=== PATIENT | female | born 1995 | race African-American/Black ===

== ENCOUNTER 2020-03-28 22:35 | Inpatient (IN) ==
[2020-03-28 23:17] LABS: Apearance,Urine CLEAR (Clear); Bacteria,Urine Occasional /HPF (Few); Bilirubin,Urine Negative (Negative); Blood, Urine Moderate mg/dL (Negative); Glucose,Urine (UA) Negative (Negative); Ketones,Urine Negative (Negative); Nitrite,Urine Negative (Negative); Protein,Urine Negative; RBC,Urine 4 /HPF (0-4); Squamous Epithelial Cell,Urine Occasional /HPF (0-10); Urine Color Straw (Yellow); Urine Specific Gravity 1.006 (1.001-1.035); Urine Urobilinogen < 2.0 EU/DL (0.2-1.0); WBC,Urine 3 /HPF (0-6)
[2020-03-29] MEDS ORDERED: MEPERIDINE 25 MG/1 ML VIAL IV PRN (00:03)
[2020-03-29] MEDS ORDERED: ONDANSETRON 4 MG/2 ML VIAL IV PRN ×3 (00:03→09:57)
[2020-03-29] MEDS ORDERED: MEPERIDINE 50 MG/1 ML VIAL IV PRN (05:27)
[2020-03-29] MEDS ORDERED: LACTATED RINGERS 1,000 ML IV PRN (05:27)
[2020-03-29] MEDS ORDERED: BUTORPHANOL 2 MG/ML VIAL IV PRN (05:27)
[2020-03-29 05:58] LABS: Basophils % 0.1 % (0.0-0.8); Hematocrit 34.3 VOL% (35.7-47.0); Hemoglobin 10.8 GM/DL (12.0-16.0); Immature Granulocytes % 0.5 %; Immature Granulocytes Absolute 0.04 #; Lymphocytes # 1.4 10*3/uL (1.4-4.0); Lymphocytes % 15.4 % (21.3-54.2); Mean Corpuscular HGB Conc 31.5 GM/DL (32-36); Mean Platelet Volume 10.6 FL (9.6-12.0); Monocytes % 8.5 % (1.7-12.7); Neutrophils % 75.5 % (38.7-73.9); Platelet Count 191 T/CUMM (130-400); Red Blood Count 3.65 MC/CUMM (3.8-5.5); Red Cell Distribution Width 13.6 % (9.3-17.3); White Blood Count 8.7 T/CUMM (4-12)
[2020-03-29] MEDS ORDERED: CITRIC ACID/SODIUM CITRATE 30 ML UDCUP PO ONE (06:05)
[2020-03-29] MEDS ORDERED: ePHEDrine 50 MG/ML VIAL IV PRN (06:05)
[2020-03-29] MEDS ORDERED: NALOXONE 0.4 MG/ML VIAL IV PRN (06:05)
[2020-03-29] MEDS ORDERED: FAMOTIDINE 20 MG/2 ML VIAL IV ONE (06:05)
[2020-03-29 06:24] LABS: Bilirubin,Total 0.7 MG/DL (0.2-1.0); Calcium 9.1 MG/DL (8.5-10.1); Total Protein 6.9 G/DL (6.4-8.3)
[2020-03-29] MEDS ORDERED: OXYTOCIN/LR 20 UNIT/1,000 ML BAG IV SCH (06:30)
[2020-03-29] MEDS ORDERED: fentaNYL 2 MCG/ROPIV 0.2% EPID 100 ML EPIDURAL SCH (06:30)
[2020-03-29] MEDS ORDERED: LIDOCAINE 1% 50 ML VIAL ONE (07:38)
[2020-03-29] MEDS ORDERED: SODIUM CHLORIDE 0.9% 0 ML IV ONE (07:39)
[2020-03-29] MEDS ORDERED: miSOPROStoL 200 MCG TABLET ONE (07:39)
[2020-03-29] MEDS ORDERED: TRANEXAMIC ACID 1,000 MG/10 ML VIAL ONE (07:42)
[2020-03-29] MEDS ORDERED: METHYLERGONOVINE 0.2 MG/1 ML AMP ONE (07:42)
[2020-03-29] MEDS ORDERED: CARBOPROST TROMETHAMINE 250 MCG/ML AMP IM ONE (07:42)
[2020-03-29 09:30] LABS: Apearance,Urine CLEAR (Clear); Bilirubin,Urine Negative (Negative); Blood, Urine Negative (Negative); Glucose,Urine (UA) Negative (Negative); Ketones,Urine 80 mg/dL (Negative); Mucus,Urine Occasional /LPF (Occasional); Nitrite,Urine Negative (Negative); Protein,Urine Negative; RBC,Urine 3 /HPF (0-4); Urine Color Yellow (Yellow); Urine Specific Gravity 1.015 (1.001-1.035); Urine Urobilinogen < 2.0 EU/DL (0.2-1.0); WBC,Urine <1 /HPF (0-6)
[2020-03-29] MEDS ORDERED: oxyCODONE/ACETAMINOPHEN 5-325 MG TABLET PO PRN ×2 (09:57)
[2020-03-29] MEDS ORDERED: WITCH HAZEL PADS 100/JAR TOP PRN (09:57)
[2020-03-29] MEDS ORDERED: ACETAMINOPHEN 325 MG TABLET PO PRN (09:57)
[2020-03-29] MEDS ORDERED: DIPH/TET/ACEL PERT BOOSTER VACCINE 0.5 ML VIAL IM ONE (09:57)
[2020-03-29] MEDS ORDERED: IBUPROFEN 800 MG TABLET PO PRN (09:57)
[2020-03-29] MEDS ORDERED: BENZOCAINE 20%/MENTHOL 0.5% SPRAY 56 GM CAN TOP PRN (09:57)
[2020-03-29] MEDS ORDERED: OXYTOCIN/LR 20 UNIT/1,000 ML BAG IV ONE (09:57)
[2020-03-29] MEDS ORDERED: HYDROCORTISONE 2.5% RECTAL CREAM 30 GM TUBE TOP PRN (09:57)
[2020-03-29] MEDS ORDERED: RHO(D) IMMUNE GLOBULIN 300 MCG SYRINGE IM ONE (09:57)
[2020-03-29] MEDS ORDERED: LANOLIN 50% CREAM 0.3 OZ TUBE TOP PRN (09:57)
[2020-03-29] MEDS ORDERED: MEASLES/MUMPS/RUBELLA VACCINE 0.5 ML VIAL SUBCUT ONE (09:57)
[2020-03-29] MEDS ORDERED: BISACODYL 10 MG SUPP RECTAL PRN (09:57)
[2020-03-29 10:03] LABS: Cord Arterial Blood HCO3 20.5 MMOL/L; Cord Venous Blood PCO2 43.3 MMHG
[2020-03-30 05:05] LABS: Basophils % 0.2 % (0.0-0.8); Eosinophils % 0.3 % (0.00-10.9); Hematocrit 28.3 VOL% (35.7-47.0); Hemoglobin 9.1 GM/DL (12.0-16.0); Immature Granulocytes % 0.4 %; Immature Granulocytes Absolute 0.04 #; Lymphocytes # 2.1 10*3/uL (1.4-4.0); Lymphocytes % 22.8 % (21.3-54.2); Mean Corpuscular HGB Conc 32.2 GM/DL (32-36); Mean Corpuscular Volume 93.4 FL (87-102); Mean Platelet Volume 10.3 FL (9.6-12.0); Monocytes % 11.8 % (1.7-12.7); Neutrophils % 64.5 % (38.7-73.9); Platelet Count 142 T/CUMM (130-400); Red Blood Count 3.03 MC/CUMM (3.8-5.5); Red Cell Distribution Width 13.7 % (9.3-17.3); White Blood Count 9.4 T/CUMM (4-12)
[2020-03-30] MEDS: DOCUSATE SODIUM 100 MG CAPSULE PO SCH ×3 (08:39→21:29)
[2020-03-31 08:10] VITALS: BP 110/67
[2020-03-31] MEDS: DOCUSATE SODIUM 100 MG CAPSULE PO SCH (09:05)
== END 2020-03-31 13:30 | disposition home or self-care (01) | DRG 807 ==
LOC: N.LDOUT 22:35 → N.LD 22:40 → N.OB 03-29 15:21
PROVIDERS: ADMIT Specialist; ATTEND Specialist